=== PATIENT | female | born 1945 | race Caucasian/White ===

== ENCOUNTER → 2016-04-04 | Outpatient (CLI) | payer MEDICARE, OTHER ==
[2016-04-04 10:53] LABS: BUN 13 mg/dL (7-18)
[2016-04-04 10:54] LABS: GFR (ESTIMATED) 82 ML/MIN (59-)
== END ==
LOC: LAB 07:53
PROVIDERS: Internal Medicine
DX: E03.9 Hypothyroidism, unspecified (principal); E78.5 Hyperlipidemia, unspecified